=== PATIENT | male | born 1975 | race Caucasian/White ===

== ENCOUNTER → 2017-05-22 15:38 | Outpatient (CLI) | payer MEDICARE | END | disposition home or self-care (01) | LOC: D.RAD 15:38 | DX: S99.922A Unspecified injury of left foot, initial encounter (principal) ==

== ENCOUNTER → 2018-09-03 12:53 | Outpatient (CLI) | payer MEDICARE | END | disposition home or self-care (01) | LOC: D.LABREF 12:53 | DX: M16.11 Unilateral primary osteoarthritis, right hip (principal); Z11.8 Encounter for screening for other infectious and parasitic diseases ==

== ENCOUNTER → 2018-10-02 08:37 | Outpatient (CLI) | payer MEDICARE | END | disposition home or self-care (01) | LOC: D.LAB 08:37 | DX: M25.559 Pain in unspecified hip (principal) ==

== ENCOUNTER 2018-10-15 10:00 | Inpatient (IN) | payer MEDICARE ==
[~2018-10-15] VITALS: Ht 162.6 cm; Wt 54.5 kg
[~2018-10-15 10:00] MED LIST: AMITIZA24 MCG PO; BAYER CHEWABLE81 MG PO; CELEXA40 MG PO; FLUTICASONE PRO16 GM NASAL; PHENERGAN25 M1 PO; ROXICODONE15 MG PO; TRIUMEQ TABLET1 EACH PO; XANAX1 MG PO
[2018-10-15 12:15] LABS: BASOPHILS 0.1 % (0-2); HEMATOCRIT 46.3 % (42.0-54.0); HEMOGLOBIN 15.4 g/dL (13.5-17.5); IMMATURE GRANULOCYTES 1.1 % (0-5); LYMPHOCYTES 23.3 % (15-50); MCH 30.7 pg (26.0-34.0); MCHC 33.3 g/dL (31.0-37.0); MCV 92.2 fL (80.0-100.0); MEAN PLATELET VOLUME 10.2 fL (7.4-10.4); MONOCYTES 9.3 % (2-11); NEUTROPHILS 57.2 % (40-80); RBC 5.02 10x6/uL (4.20-6.10); RDW 13.2 % (11.5-14.5); WBC 9.3 10x3/uL (4.8-10.8)
[2018-10-15 12:18] LABS: PLATELET COUNT 248 10x3/uL (130-400)
[2018-10-15 12:22] LABS: CALC OSMOLALITY 275 mosm/kg (275-300); CALCIUM 8.7 mg/dL (8.5-10.1); CHLORIDE - SERUM 101 mmol/L (98-107); CREATININE - SERUM 0.7 mg/dL (0.6-1.3); GLUCOSE 90 mg/dL (74-106); POTASSIUM - SERUM 3.9 mmol/L (3.5-5.1); SODIUM 138 mmol/L (136-145); UREA NITROGEN 12 mg/dL (7-18); eGFR NON AFRICAN AMERICAN > 90 mL/min (90-120)
[2018-10-15 12:24] LABS: APTT 34.7 SECONDS (22.8-39.4); INR 0.98 (0.85-1.17); PROTIME 12.5 SECONDS (11.6-15.0)
[2018-10-15 12:49] LABS: APPEARANCE CLEAR (CLEAR); BILIRUBIN NEGATIVE (NEGATIVE); COLOR YELLOW (YELLOW); GLUCOSE NEGATIVE (NEGATIVE); KETONE NEGATIVE (NEGATIVE); NITRITE NEGATIVE (NEGATIVE); PROTEIN NEGATIVE (NEGATIVE); SPECIFIC GRAVITY 1.015 (1.005-1.020); UROBILINOGEN NORMAL (NORMAL)
[2018-10-20] VITALS (11 sets, daily range): BP systolic 89–112; BP diastolic 40–77; Ht 162.6 cm; Wt 54.5 kg
[2018-10-20 18:09] LABS: HEMATOCRIT 33.5 % (42.0-54.0); HEMOGLOBIN 11.4 g/dL (13.5-17.5); MCH 30.2 pg (26.0-34.0); MCV 88.9 fL (80.0-100.0); MEAN PLATELET VOLUME 10.1 fL (7.4-10.4); PLATELET COUNT 272 10x3/uL (130-400); RBC 3.77 10x6/uL (4.20-6.10); RDW 12.8 % (11.5-14.5); WBC 20.2 10x3/uL (4.8-10.8)
[2018-10-20 18:10] LABS: C-REACTIVE PROTEIN 0.3 mg/dL (0.0-0.9); CREATININE - SERUM 0.8 mg/dL (0.6-1.3)
[2018-10-20 18:35] LABS: LYMPHOCYTES 3 % (15-50); NEUTROPHILS 94 % (40-80)
[2018-10-20 18:36] LABS: PLATELET ESTIMATE NORMAL
[2018-10-20 18:59] LABS: ERYTHROCYTE SEDIMENTATION RATE 3 mm/hr (0-15)
[2018-10-21] VITALS (8 sets, daily range): BP systolic 91–110; BP diastolic 33–60
--- NOTE | 2018-10-21 01:17 | NUR ---
A/0X4. BREATHING EVEN AND UNLABORED. DENIES NEEDS AT THIS TIME. WILL CONTINUE POC.
[2018-10-21 05:19] LABS: HEMATOCRIT 27.9 % (42.0-54.0); HEMOGLOBIN 9.5 g/dL (13.5-17.5); MCH 30.4 pg (26.0-34.0); MCHC 34.1 g/dL (31.0-37.0); MCV 89.4 fL (80.0-100.0); MEAN PLATELET VOLUME 10.1 fL (7.4-10.4); RBC 3.12 10x6/uL (4.20-6.10); WBC 18.3 10x3/uL (4.8-10.8)
--- NOTE | 2018-10-21 14:07 | NUR ---
Rehab Prescreening Consult recieved and the chart has been reviewed. He is [facility] managed Medicare which requires a preauth for the ARU. A PT and an OT eval will be needed before submitting information for their review. Maribell Leon RN Clinical Liaison, Rehab
--- NOTE | 2018-10-21 16:43 | OP ---
PATIENT NAME: COREY WITT MEDICAL RECORD: [id number] :75 LOCATION:D.MS [id number] ADMISSION DATE:10/20/18 SURGEON: KASIA GUERRA MD DATE OF OPERATION: 10/20/2018 PREOPERATIVE DIAGNOSES: 1. 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 2. Trochanteric tip fracture of the right hip. POSTOPERATIVE DIAGNOSES: 1. 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 2. Trochanteric tip fracture of the right hip. PROCEDURES: 1. Revision total hip arthroplasty from bipolar to total hip arthroplasty. 2. ORIF of the greater trochanteric tip fracture. SURGEON: Kasia Guerra MD ANESTHESIA: General. DIRECTOR OF GRADUATE MEDICAL EDUCATION: Andrew Garcia APN INTRAOPERATIVE COMPLICATIONS: None. SUMMARY OF PATHOLOGIC FINDINGS: The patient had essentially chondromalacia of the acetabulum, which one would expect in this young person. The trochanteric tip fracture only required a rigid suture fixation and not metallic fixation. This was provided. INDICATIONS: Corey Witt is a 43-year-old male who had previously been treated with a bipolar hip arthroplasty for femoral neck fracture. His CD4 counts have been fine and he had been cleared for surgery from infectious disease. The patient's chief complaint was groin pain and secondarily he had pain on the lateral aspect of his trochanter that had not responded to other forms of treatment, thusly he presented for revision from bipolar to total hip arthroplasty. It is of note, at the time of surgery, the patient did not have any areas of metalosis. There were no untoward effects seen on the neck or neck shaft of the well-fixed stem that was not replaced. IMPLANTS USED: Trident II Tritanium acetabular shell size 50 cup. A -2.5 Biolox delta ceramic V40 head and then a polyethylene insert 0-degree 36 mm alpha code D. OPERATIVE SUMMARY IN DETAIL: After obtaining the appropriate preoperative orthopedic surgery consent as well as anesthetic consultation, evaluation and clearance, the patient was brought to the operating room and placed on the operating table in supine position. After general laryngeal mask airway was administered, the patient was placed in left lateral decubitus position. All pressure points were well padded to include down leg peroneal pad as well as axillary roll. The patient was held firmly to the operating table using the vacuum pack suction system. Right lower extremity and hip were then prepped and draped in routine sterile fashion. Anterolateral approach was chosen. Curvilinear incision was taken down to the level of the IT band, which was split in line with the fibers of the IT band to reveal the gluteus medius minimus OPERATIVE REPORT [id number] COREY WITT A attachment to the greater trochanter. These were reflected anteriorly and saved for later reapproximation. The hip capsule was split in a T-type fashion. The capsule was very large, robust and thick secondary to previous operative intervention. This was all dissected free. Again, there was no evidence of pseudotumor or metalosis seen in the hip capsule itself. The bipolar was then dislocated and the Castro taper was disassociated using a tamp. At this point, the acetabulum was visualized clearly. Circumferential labrectomy and further removal of hypertrophic capsule was followed by serial and sequential reaming to a size 49 for insertion of a size 50 Trident cup. The Trident cup was then put into place in the appropriate version using the version placement guide and had excellent capture without need for screw augmentation. Polyethylene was inserted into place at this point. Trial was undertaken and it was felt that the -5 was too loose and the standard was a little too tight. A -2.5 Biolox head was tamped on the Castro taper and reduced. Intraoperative radiographs showed excellent mormonism of leg length and good position and placement of the newly placed acetabulum. At this point, a FiberTape was utilized in a [id number]-zyxyu fashion to reapproximate the small greater tip trochanteric fracture. This was tied tightly. Please note that the radiograph was taken after internal fixation of the greater trochanter. Having completed this, the wound was copiously irrigated again. The hip capsule was closed with #2 Ethibond followed by #5 reapproximation of the gluteus medius and minimus back to the anterior aspect of the greater trochanter. IT band was then closed with #2 Ethibond. This was followed by #1 Vicryl, 2-0 Vicryl, and skin mandy. The final closure was done by Andrew Garcia APN. Skin mandy were utilized followed by placement of Aquacel Ag for sterile dressing. The patient was awakened, taken to the recovery room in stable condition. All final needle and sponge counts were correct. TRANSINT:[id number] Voice Confirmation ID: [id number] DOCUMENT ID: [id number] MARI VILLALOBOS, KASIA BARBOZA at 1643 CC: [id number] DICTATION DATE: 10/21/1846 ENVIRONMENTAL SERVICES LEAD: 10/21/18 1001 ADM IN [facility] [id number] [place] [address]
--- NOTE | 2018-10-21 19:59 | NUR ---
LYING IN BED. ALERT AND ORIENTED X4. IRRITABLE AND EXCITABLE. ASKING FOR NORCO BUT B/P IS LOW 91/47. PLASTICS FABRICATOR OR WELDER DILAUDID IN USE. PT IS USING IT. RATES PAIN "9". EXPLAINED THAT STAFF DIDNT FEEL COMFORTABLE GIVING HIM ANOTHER NARCOTIC WITH B/P BEING LOW IT IS. OFFERED TORADOL AND PT ACCEPTED. MEDICATED WITH TORADOL ORDERED. RESP NONLABORED. PEDAL PULSES STRONG BILAT. DRSG NOTED TO RT HIP IS C/D/I. 1/2 NS @ 30 ML/HR INFUSING IN LT FOREARM WITHOUT DIFF. USING URINAL. VERY TALKATIVE AND HYPERACTIVE. SR ELEVATED X2. CL IN REACH. NO ACUTE DISTRESS.
--- NOTE | 2018-10-22 01:07 | NUR ---
HAS BEEN RESTING WELL SO FAR. AWAKENED FOR V/S. STATES THE TORADOL HELPED ALOT AND IS ASKING FOR IT AGAIN. EXPLAINED IT ISNT DUE UNTIL 0200. HE VERBALIZED UNDERSTANDING.
[2018-10-22 01:10] VITALS: BP 102/62
--- NOTE | 2018-10-22 01:55 | NUR ---
MEDICATED WITH TORADOL FOR C/O PAIN IN RT HIP NOT RELIEVED BY DILAUDID AIRPLANE PATROL PILOT. CL IN REACH.
--- NOTE | 2018-10-22 05:07 | NUR ---
HAS RESTED WELL SINCE RECEIVING TORADOL. NO DISTRESS. CL IN REACH.
[2018-10-22 05:20] LABS: MCH 30.4 pg (26.0-34.0); MCHC 33.3 g/dL (31.0-37.0); MCV 91.1 fL (80.0-100.0); MEAN PLATELET VOLUME 10.3 fL (7.4-10.4); RBC 2.14 10x6/uL (4.20-6.10); WBC 6.9 10x3/uL (4.8-10.8)
[2018-10-22 05:22] LABS: HEMOGLOBIN 6.5 g/dL (13.5-17.5)
[2018-10-22 05:23] LABS: HEMATOCRIT 19.5 % (42.0-54.0)
[2018-10-22 05:36] VITALS: BP 112/72
--- NOTE | 2018-10-22 06:28 | NUR ---
NOTIFIED OF CRITICAL H/H. NEW ORDER NOTED TO D/C ELIQUIS AND TYPE AND CROSSMATCH 2 UNITS OF PRBCS AND TRANSFUSE 2 UNITS.
--- NOTE | 2018-10-22 07:15 | NUR ---
REC'D IN BED AWAKE AND ALERT. RESP EVEN AND UNLABORED WITH NO DISTRESS NOTED. CAN EXPRESS NEEDS AND WANTS. C/O PAIN RATING 10/10 ON PAIN SCALE. PT HAS ACCOUNTS RECEIVABLE ANALYST DILUADID PUMP IN USE AT THIS TIME. ASSESSMENT COMPLETED. C/L IN REACH AT BEDSIDE.
[2018-10-22 08:45] VITALS: BP 98/49
--- NOTE | 2018-10-22 09:30 | NUR ---
IT COORDINATOR OF DILAUDID WAS DISCONTINUED AT THIS TIME.
--- NOTE | 2018-10-22 11:32 | NUR ---
Rehab Note- Continue to follow at this time. Awaiting OT and PT Evals for PreAuth. Continue to follow at this time. Heaven Fu RN Clinical Liaison, [facility] Rehab
--- NOTE | 2018-10-22 12:21 | NUR ---
PT C/O PAIN WAS MEDICATED WITH DILUADID 4 MG PER ORDERS FOR C/O PAIN. C/L IN REACH AT BEDSIDE.
--- NOTE | 2018-10-22 15:11 | MORECARE ---
CASE MANAGEMENT DISCHARGE SUMMARY PATIENT: MAYELA DE SANTIAGO UNIT: [id number] ADM DATE: 10/20/18 AGE: 43 : 75 SEX: M ROOM/BED: D.2209 AUTHOR: BRIANNA COLLINS PHYSICIAN: REFERRING PHYSICIAN: KASIA GUERRA MD DATE OF SERVICE: 10/22/18 Discharge Plan Patient Name: MAYELA DE SANTIAGO [facility] 1975 Planned Disposition: Home Anticipated Discharge Date: Discharge Date: Expected LOS: Initial Reviewer: [email or web address] Initial Review Date: 10/20/2018 Generated: 10/22/18 4:11 pm DCPIA - Discharge Planning Initial Assessment Updated by [email or web address]: Martine Mercedes on 10/22/18 3:09 pm * Is the patient Alert and Oriented? Yes * How many steps to enter\exit or inside your home? * PCP CHE * Pharmacy [facility] * Preadmission Environment Home with Family * ADLs Independent * Equipment Rolling Walker * List name and contact numbers for known caregivers / representatives who currently or will assist patient after discharge: MICKY MCKINNEY ([phone]) * Verbal permission to speak to the caregivers and representatives has been obtained from the patient. N/A * Community resources currently utilized None * Additional services required to return to the preadmission environment? Yes * Can the patient safely return to the preadmission environment? Yes * Has this patient been hospitalized within the prior 30 days at any hospital? No Patient Name: MAYELA DE SANTIAGO Page [phone] at 1511 All edits/amendments must be made on the electronic document DICTATION DATE: 10/22/18 151 PRICING ANALYST: QUINTIN 10/22/18 151 RPT#: [id number] DC DATE: STATUS: ADM IN [facility] [address] [place] [address] END OF REPORT
--- NOTE | 2018-10-22 15:30 | MORECARE ---
CASE MANAGEMENT DISCHARGE SUMMARY PATIENT: MAYELA WITT UNIT: [id number] ADM DATE: 10/20/18 AGE: 43 : 75 SEX: M ROOM/BED: D.2209 AUTHOR: DENNISDOC PHYSICIAN: REFERRING PHYSICIAN: KASIA GUERRA MD DATE OF SERVICE: 10/22/18 Discharge Plan Patient Name: MAYELA WITT Facility: [facility]:[place] : 1975 Planned Disposition: Inpatient Rehab Anticipated Discharge Date: Discharge Date: Expected LOS: Initial Reviewer: [email or web address] Initial Review Date: 10/20/2018 Generated: 10/22/18 4:29 pm Comments DCP- Discharge Planning Updated by [id number]: Martine Mercedes on 10/22/18 2:[address] Patient Name: MAYELA WITT Admission Status: Elective Accout number: [id number] Admission Date: 10-20-2018 : 1975 Admission Diagnosis: Attending: KASIA GUERRA Current LOS: 2 Anticipated DC Date: Planned Disposition: Inpatient Rehab Primary Insurance: [facility] MEDICARE SOLUTIONS Discharge Planning Comments: CM met with patient to assess discharge planning needs. Patient stated that he would like to do inpatient rehab at [facility]. He lives with his parents and his mom will be the one to drive him home. When he is discharged he will need a BSC and a CPM. There are 3 steps to enter in his home. I explained to him that he will have to participate with PT in order to be accepted and insurance will have to approve him to go to inpatient rehab. CM will continue to follow and assist with dc planning Sanitary Engineer: Martine Mercedes DCPIA - Discharge Planning Initial Assessment Updated by [email or web address]: Martine Mercedes on 10/22/18 3:23 pm * Is the patient Alert and Oriented? Yes * How many steps to enter\exit or inside your home? * PCP Trae loza * [facility] * Preadmission Environment Home with Family * ADLs Independent * Equipment None * List name and contact numbers for known caregivers / representatives who currently or will assist patient after discharge: mehul Witt [phone] * Verbal permission to speak to the caregivers and representatives has been obtained from the patient. N/A * Community resources currently utilized None * Additional services required to return to the preadmission environment? Yes * Can the patient safely return to the preadmission environment? Yes * Has this patient been hospitalized within the prior 30 days at any hospital? No Last DP export: 10/22/18 2:11 pm Patient Name: MAYELA WITT Page [phone] at 1530 All edits/amendments must be made on the electronic document DICTATION DATE: 10/22/18 152 CASE REVIEWER: DM 10/22/18 1529 RPT#: [id number] DC DATE: STATUS: ADM IN [facility] [address] [place] [address] END OF REPORT
--- NOTE | 2018-10-22 17:22 | NUR ---
PT C/O PAIN RATING 10/10 ON PAIN SCALE WAS MEDICATED WITH DILUADID 4 MG PER ORDER BY MOUTH. FAMILY AT BEDSIDE. C/L IN REACH AT BEDSIDE.
--- NOTE | 2018-10-22 20:05 | NUR ---
LYING IN BED TALKING ON PHONE. VERY TALKATIVE AND EXCITABLE. POOR ATTN. RATES PAIN IN RT HIP 9. DRSG TO RT HIP IS C/D/I. PEDAL PULSES STRONG. SCD TO LLE. RESP EVEN AND NONLABORED. BBS CTA. SALINE LOCK NOTED TO LT FOREARM. SR ELEVATED X2. CL IN REACH.
--- NOTE | 2018-10-22 20:10 | NUR ---
DIRECTOR MOBILE MEDIA SOLUTIONS NOTE: PT RESTING IN BED. DILAUDID MICROFILM EQUIPMENT INSPECTOR INFUSING. EDUCATION GIVEN TO PT ON PT USE ONLY. NO S/S OF ACUTE DISTRESS. CL IN PLACE.
[2018-10-22 20:23] VITALS: BP 111/77
--- NOTE | 2018-10-22 21:25 | NUR ---
MEDICATED WITH DILAUDID FOR C/O PAIN IN RT HIP RATING 10. STILL TALKING AND LAUGHING WITH STAFF. CL IN REACH.
[2018-10-23 00:15] VITALS: BP 112/64
--- NOTE | 2018-10-23 07:30 | NUR ---
REC'D SITTING UP IN BED AWAKE AND ALERT. RESP EVEN AND UNLABORED WITH NO DISTRESS NOTED. CAN EXPRESS NEEDS AND WANTS. ASSESSMENT COMPLETED. C/L IN REACH AT BEDSIDE.
[2018-10-23 08:22] VITALS: BP 116/65
[2018-10-23 08:37] LABS: MCH 31.3 pg (26.0-34.0); MCHC 35.1 g/dL (31.0-37.0); MEAN PLATELET VOLUME 10.1 fL (7.4-10.4); RDW 15.4 % (11.5-14.5)
[2018-10-23 08:44] LABS: HEMATOCRIT 26.2 % (42.0-54.0); HEMOGLOBIN 9.2 g/dL (13.5-17.5); MCV 89.1 fL (80.0-100.0); RBC 2.94 10x6/uL (4.20-6.10); WBC 8.7 10x3/uL (4.8-10.8)
--- NOTE | 2018-10-23 10:00 | NUR ---
Rehab Note- Received fax requesting clinicals to be faxed for review to [facility] for possible inpatient acute rehab stay. Faxed at this time, will fax OT Eval when available. Will continue to follow at this time. THank you for this referral! Heaven Fu RN Clinical Liaison, [facility] Rehab
[2018-10-23 13:16] VITALS: BP 114/61
[2018-10-23 16:51] VITALS: BP 110/70
--- NOTE | 2018-10-23 18:57 | NUR ---
PATIENT GIVEN 4MG OF DILAUDID FOR REPORT OF HIP PAIN
--- NOTE | 2018-10-23 20:00 | NUR ---
ALERT RESTING IN BED RESP UNLABOARED DRESSING TO RIGHT HIP DRY AND INTACT IV SALINE LOCKED CALL LIGHT IN REACH
[2018-10-23 20:53] VITALS: BP 109/60
[2018-10-24 01:11] VITALS: BP 99/58
[2018-10-24 04:51] VITALS: BP 120/64
--- NOTE | 2018-10-24 07:30 | NUR ---
REC'D IN BED AWAKE AND ALERT. RESP EVEN AND UNLABORED WITH NO DISTRESS NOTED. CAN EXPRESS NEEDS AND WANTS. PT C/O PAIN RATING 9/10 ON PAIN SCALE INFORMED PT THAT IT WAS NOT TIME FOR PAIN MEDS AGAIN CAUSE HE WAS JUST MEDICATED A LITTLE AFTER 4 AM. ASSESSMENT COMPLETED. C/L IN REACH AT BEDSIDE.
[2018-10-24 09:35] VITALS: BP 110/67
--- NOTE | 2018-10-24 10:25 | NUR ---
C/O PAIN RATINTG 9/10 ON PAIN SCALE WAS MEDICATED WITH DILAUDID 4 MG PER ORDERS. C/L IN REACH AT BEDSIDE.
--- NOTE | 2018-10-24 11:45 | NUR ---
PT WAS OFFERED TORDAL AT THIS TIME BUT HE REFUSED THIS PAIN MEDICATION AND STATED I WILL WAIT UNTIL MY NEXT DOSE OF DILUADID IS DUE. C/L IN REACH AT BEDSIDE.
[2018-10-24 14:13] VITALS: BP 109/57
[2018-10-24 15:42] VITALS: BP 124/46
--- NOTE | 2018-10-24 16:06 | NUR ---
WAS MEDICATED WITH DILUADID 4 MG AT THIS TIME PER ORDERS. C/L IN REACH AT BEDSIDE.
--- NOTE | 2018-10-24 16:15 | NUR ---
PT DRESSING WAS REINFORCED D/T BLEEDING PT REFUSED TO LET THIS NURSE CHANGE DRESSING COMPLETELY STATING I WILL WAIT UNTIL TOMORROW AFTER I SHOWER.
--- NOTE | 2018-10-24 19:15 | NUR ---
RECEIVED CARE FROM DAY NURSE. LYING IN BED IN HIGH FOWLERS POSITION. REPORTS NO NEEDS AT THIS TIME. CALL LIGHT AT SIDE. DRESSING TO RIGHT HIP CDI. PER DAY NURSE DRESSING REINFORCED AND PT REFUSED TO HAVE DRESSING CHANGED.
--- NOTE | 2018-10-24 20:25 | NUR ---
IV IN LEFT FA LEAKING AT INSERTION SITE. DC'D WITH TIP INTACT. ATTEMPTED TO RESITE X2. REFUSED FURTHER ATTEMPTS.
[2018-10-24 21:28] VITALS: BP 100/52
[2018-10-25 00:29] VITALS: BP 105/50
--- NOTE | 2018-10-25 00:45 | NUR ---
RESTING SOUNDLY. CALL LIGHT AT SIDE. NO DISTRESS NOTED.
[2018-10-25 05:26] VITALS: BP 110/80
[2018-10-25 06:41] LABS: HEMATOCRIT 29.3 % (42.0-54.0); HEMOGLOBIN 9.6 g/dL (13.5-17.5); MCH 29.6 pg (26.0-34.0); MCHC 32.8 g/dL (31.0-37.0); MCV 90.4 fL (80.0-100.0); MEAN PLATELET VOLUME 10.2 fL (7.4-10.4); RBC 3.24 10x6/uL (4.20-6.10)
--- NOTE | 2018-10-25 08:10 | NUR ---
PT AAOX4 RESP EVEN AND NONLABORED, REQUESTING PAIN MEDS WILL CHECK EMAR AND ADMINSITER PER PROTOCOL, CL IN REACH, NO SIGNS OF DISTRESS NOTED
[2018-10-25 09:09] VITALS: BP 105/59
[2018-10-25 13:15] VITALS: BP 102/84
--- NOTE | 2018-10-25 17:44 | NUR ---
HORSE SHOER NOTES - POD 5 OF HIP. UP WITH PT. TAKING PAIN MEDICATION PO. REPORTING PAIN OF 8-10 ALL DAY
[2018-10-25 20:53] VITALS: BP 128/46
[2018-10-26 00:50] VITALS: BP 120/85
[2018-10-26 05:02] VITALS: BP 113/65
--- NOTE | 2018-10-26 07:50 | NUR ---
PT RESTING EYES CLOSED, NO SIGNS OF DISTRESS NOTED, CL IN REACH WILL CONTINUE TO MONITOR
[2018-10-26 08:00] VITALS: BP 124/65
[2018-10-26] MEDS ORDERED: DILAUDID4 MG PO (09:50)
[2018-10-26] MEDS ORDERED: VISTARIL50 MG PO (09:50)
[2018-10-26] MEDS ORDERED: BAYER CHEWABLE81 MG PO (09:50)
--- NOTE | 2018-10-26 15:42 | NUR ---
PT DC AT THIS TIME DC INSTRUCTIONS PT VERABLIZES UNDERSTANDING LEFT VIA WHEELCHAIR VIA HOSPITAL STAFF IN STABLE CONDITION PRESCIPTIONS GIVEN TO PT
--- NOTE | 2018-10-26 17:32 | MORECARE ---
CASE MANAGEMENT DISCHARGE SUMMARY PATIENT: MAYELA DE SANTIAGO UNIT: [id number] ADM DATE: 10/20/18 AGE: 43 : 75 SEX: M ROOM/BED: D.2209 AUTHOR: DENNIS,DOC PHYSICIAN: REFERRING PHYSICIAN: KASIA GUERRA MD DATE OF SERVICE: 10/26/18 Discharge Plan Patient Name: MAYELA DE SANTIAGO Facility: [facility]:[place] : 1975 Planned Disposition: Inpatient Rehab Anticipated Discharge Date: 10/26/18 Discharge Date: 10/26/2018 Expected LOS: 6 Initial Reviewer: [email or web address] Initial Review Date: 10/20/2018 Generated: 10/26/18 6:31 pm Comments DCP- Discharge Planning Updated by [email or web address]: Martine Mercedes on 10/22/18 2:[address] Patient Name: MAYELA DE SANTIAGO Admission Status: Elective Accout number: [id number] Admission Date: 10-20-2018 : 1975 Admission Diagnosis: Attending: KASIA GUERRA Current LOS: 2 Anticipated DC Date: Planned Disposition: Inpatient Rehab Primary Insurance: [facility] MEDICARE SOLUTIONS Discharge Planning Comments: CM met with patient to assess discharge planning needs. Patient stated that he would like to do inpatient rehab at [facility]. He lives with his parents and his mom will be the one to drive him home. When he is discharged he will need a BSC and a CPM. There are 3 steps to enter in his home. I explained to him that he will have to participate with PT in order to be accepted and insurance will have to approve him to go to inpatient rehab. CM will continue to follow and assist with dc planning Gas Meter Repairer: Martine Mercedes DCPIA - Discharge Planning Initial Assessment Updated by [email or web address]: Martine Mercedes on 10/22/18 3:23 pm * Is the patient Alert and Oriented? Yes * How many steps to enter\exit or inside your home? * PCP Trae loza * Pharmacy [facility] * Preadmission Environment Home with Family * ADLs Independent * Equipment None * List name and contact numbers for known caregivers / representatives who currently or will assist patient after discharge: mehul Miryamtfr [phone] * Verbal permission to speak to the caregivers and representatives has been obtained from the patient. N/A * Community resources currently utilized None * Additional services required to return to the preadmission environment? Yes * Can the patient safely return to the preadmission environment? Yes * Has this patient been hospitalized within the prior 30 days at any hospital? No Last DP export: 10/22/18 2:30 pm Patient Name: MAYELA DE SANTIAGO Page [phone] at 1732 All edits/amendments must be made on the electronic document DICTATION DATE: 10/26/181730 METAL FENCE ERECTOR: QUINTIN 10/26/181730 RPT#: [id number] DC DATE:10/26/18 STATUS: DIS IN [facility] [address] [place] [address] END OF REPORT
--- NOTE | 2018-10-26 17:39 | MORECARE ---
CASE MANAGEMENT DISCHARGE SUMMARY PATIENT: MAYELA DE SANTIAGO UNIT: [id number] ADM DATE: 10/20/18 AGE: 43 : 75 SEX: M ROOM/BED: D.2209 AUTHOR: DENNIS,DOC PHYSICIAN: REFERRING PHYSICIAN: KASIA GUERRA MD DATE OF SERVICE: 10/26/18 Discharge Plan Patient Name: MAYELA DE SANTIAGO Facility: [facility]:[place] : 1975 Planned Disposition: Inpatient Rehab Anticipated Discharge Date: 10/26/18 Discharge Date: 10/26/2018 Expected LOS: 6 Initial Reviewer: [email or web address] Initial Review Date: 10/20/2018 Generated: 10/26/18 6:39 pm Comments DCP- Discharge Planning Updated by [email or web address]: Zora Jiang on 10/26/18 4:[address] LATE ENTRY- 1030 PATIENT FOR DISCHARGE TO HOME WITH HOME HEALTH. HIS MOTHER AND FATHER WERE AT THE BEDSIDE HE GAVE PERMISSION FOR CM TO SPEAK WITH HIM AND HIS PARENTS. CM ADVISED MD HAD ORDERED HOME HEALTH. PATIENT CHOICE FORM OBTAINED. HE SELECTED [facility]. TC TO [facility]. CM SPOKE W/ WOOD. FAXED REFERRAL. [facility] WILL CONTACT PATIENT REGARDING VISIT. H/H FOR LONGTERM AND PHYSICAL THERAPY. CM NOTE STATED PATIENT WOULD NEED CPM AMD BSC. CM SPOKE WITH DR FLORES ABOUT CPM. DR FLORES STATED A CPM WAS NOT INDICATED FOR THIS PATIENT. TC TO [facility] REGARDING BEDSIDE COMMODE. FAXED MD ORDER, FACE SHEET AND OPERATIVE NOTE. AWAITED DELIVERY. SPOKE WITH [facility]. WILL DELIVER TO THE PATIENT BEDSIDE. PATIENT DISCHARGED TO HOME AT 1545. THEY WERE TIRED OF WAITING FOR THE COMMODE. JOHANNAE ARRIVED 10 MINUTES AFTER PATIENT DISCHARGE. [facility] TO SEE IF HE STILL WANTS THE COMMODE. DCP- Discharge Planning Updated by [email or web address]: Martine Mercedes on 10/22/18 2:[address] Patient Name: MAYELA DE SANTIAGO Admission Status: Elective Accout number: [id number] Admission Date: 10-20-2018 : 1975 Admission Diagnosis: Attending: KASIA GUERRA Current LOS: 2 Anticipated DC Date: Planned Disposition: Inpatient Rehab Primary Insurance: [facility] MEDICARE SOLUTIONS Discharge Planning Comments: CM met with patient to assess discharge planning needs. Patient stated that he would like to do inpatient rehab at [facility] [place]. He lives with his parents and his mom will be the one to drive him home. When he is discharged he will need a BSC and a CPM. There are 3 steps to enter in his home. I explained to him that he will have to participate with PT in order to be accepted and insurance will have to approve him to go to inpatient rehab. CM will continue to follow and assist with dc planning Train System Operator: Martine Mercedes DCPIA - Discharge Planning Initial Assessment Updated by [email or web address]: Martine Mercedes on 10/22/18 3:23 pm * Is the patient Alert and Oriented? Yes * How many steps to enter\exit or inside your home? * PCP Trae loza * Pharmacy [facility] * Preadmission Environment Home with Family * ADLs Independent * Equipment None * List name and contact numbers for known caregivers / representatives who currently or will assist patient after discharge: mehul Miryam [phone] * Verbal permission to speak to the caregivers and representatives has been obtained from the patient. N/A * Community resources currently utilized None * Additional services required to return to the preadmission environment? Yes * Can the patient safely return to the preadmission environment? Yes * Has this patient been hospitalized within the prior 30 days at any hospital? No Last DP export: 10/26/18 4:32 p Patient Name: MAYELA DE SANTIAGO Page [phone] at 173 All edits/amendments must be made on the electronic document DICTATION DATE: 10/26/181738 ENERGY MANAGEMENT SPECIALIST: QUINTIN 10/26/181738 RPT#: [id number] DC DATE:10/26/18 STATUS: DIS IN [facility] [address] [place] [address] END OF REPORT
--- NOTE | 2018-10-27 09:11 | MORECARE ---
CASE MANAGEMENT DISCHARGE SUMMARY PATIENT: MAYELA DE SANTIAGO UNIT: [id number] ADM DATE: 10/20/18 AGE: 43 : 75 SEX: M ROOM/BED: D.2209 AUTHOR: DENNIS,DOC PHYSICIAN: REFERRING PHYSICIAN: KASIA GUERRA MD DATE OF SERVICE: 10/27/18 Discharge Plan Patient Name: MAYELA DE SANTIAGO Facility: [facility]:[place] : 1975 Planned Disposition: Inpatient Rehab Anticipated Discharge Date: 10/26/18 Discharge Date: 10/26/2018 Expected LOS: 6 Initial Reviewer: [email or web address] Initial Review Date: 10/20/2018 Generated: 10/27/18 10:11 am Comments DCP- Discharge Planning Updated by [email or web address]: Zora Jiang on 10/26/18 4:[address] LATE ENTRY- 1030 PATIENT FOR DISCHARGE TO HOME WITH HOME HEALTH. HIS MOTHER AND FATHER WERE AT THE BEDSIDE HE GAVE PERMISSION FOR CM TO SPEAK WITH HIM AND HIS PARENTS. CM ADVISED MD HAD ORDERED HOME HEALTH. PATIENT CHOICE FORM OBTAINED. HE SELECTED [facility]. TC TO [facility]. CM SPOKE W/ WOOD. FAXED REFERRAL. [facility] WILL CONTACT PATIENT REGARDING VISIT. H/H FOR CORRECTION AND PHYSICAL THERAPY. CM NOTE STATED PATIENT WOULD NEED CPM AMD BSC. CM SPOKE WITH DR FLORES ABOUT CPM. DR FLORES STATED A CPM WAS NOT INDICATED FOR THIS PATIENT. TC TO [facility] REGARDING BEDSIDE COMMODE. FAXED MD ORDER, FACE SHEET AND OPERATIVE NOTE. AWAITED DELIVERY. SPOKE WITH [facility]. WILL DELIVER TO THE PATIENT BEDSIDE. PATIENT DISCHARGED TO HOME AT 1545. THEY WERE TIRED OF WAITING FOR THE COMMODE. JOHANNAE ARRIVED 10 MINUTES AFTER PATIENT DISCHARGE. [facility] PATIENT TO SEE IF HE STILL WANTS THE COMMODE. DCP- Discharge Planning Updated by [id number]: Martine Mercedes on 10/22/18 2:[address] Patient Name: MAYELA DE SANTIAGO Admission Status: Elective Accout number: [id number] Admission Date: 10-20-2018 : 1975 Admission Diagnosis: Attending: KASIA GUERRA Current LOS: 2 Anticipated DC Date: Planned Disposition: Inpatient Rehab Primary Insurance: [facility] [employer] Discharge Planning Comments: CM met with patient to assess discharge planning needs. Patient stated that he would like to do inpatient rehab at [facility]. He lives with his parents and his mom will be the one to drive him home. When he is discharged he will need a BSC and a CPM. There are 3 steps to enter in his home. I explained to him that he will have to participate with PT in order to be accepted and insurance will have to approve him to go to inpatient rehab. CM will continue to follow and assist with dc planning Fabric Worker Leader: Martine Mercedes DCPIA - Discharge Planning Initial Assessment Updated by [id number]: Martine Mercedes on 10/22/18 3:23 pm * Is the patient Alert and Oriented? Yes * How many steps to enter\exit or inside your home? * PCP Trae loza * Pharmacy [facility] * Preadmission Environment Home with Family * ADLs Independent * Equipment None * List name and contact numbers for known caregivers / representatives who currently or will assist patient after discharge: mehul Miryam [phone] * Verbal permission to speak to the caregivers and representatives has been obtained from the patient. N/A * Community resources currently utilized None * Additional services required to return to the preadmission environment? Yes * Can the patient safely return to the preadmission environment? Yes * Has this patient been hospitalized within the prior 30 days at any hospital? No Last DP export: 10/26/18 4:39 p Patient Name: MAYELA DE SANTIAGO Page [id number] at 0911 All edits/amendments must be made on the electronic document DICTATION DATE: 10/27/18909 SERVICE TEAM LEADER: QUINTIN 10/27/18909 RPT#: [id number] DC DATE:10/26/18 STATUS: DIS IN [facility] [address] [place] [address] END OF REPORT
== END 2018-10-26 15:36 | disposition home health service (06) | DRG 466 ==
LOC: D.SDCHOLD 10-20 10:00 → D.MS 10-20 10:35 → D.SDCHOLD 10-20 11:15 → D.MS 10-20 15:08
PROVIDERS: Student in an Organized Health Care Education/Training Program; ADMIT Orthopaedic Surgery
PROC: 0SP90JZ Removal of Synthetic Substitute from Right Hip Joint, Open Approach (ICD-10-PCS; 2018-10-20)
PROC: 0QS604Z Reposition Right Upper Femur with Internal Fixation Device, Open Approach (ICD-10-PCS; 2018-10-20)
PROC: 0SR90JZ Replacement of Right Hip Joint with Synthetic Substitute, Open Approach (ICD-10-PCS; principal; 2018-10-20 12:30)
DX: T84.84XA Pain due to internal orthopedic prosthetic devices, implants and grafts, initial encounter (principal); S72.101A Unspecified trochanteric fracture of right femur, initial encounter for closed fracture; D62 Acute posthemorrhagic anemia; K75.9 Inflammatory liver disease, unspecified

== ENCOUNTER → 2019-10-05 12:50 | Outpatient (CLI) | payer MEDICARE ==
[2018-10-20 20:33] VITALS: BMI 20.6
[~2019-10-05 12:50] MED LIST changes: +DILAUDID4 MG PO; +VISTARIL50 MG PO
== END | disposition home or self-care (01) ==
LOC: D.MRI 12:50
PROVIDERS: ATTEND Orthopaedic Surgery
DX: M54.16 Radiculopathy, lumbar region (principal)

== ENCOUNTER 2021-04-04 21:07 | Emergency (ER) | payer MEDICARE ==
[~2021-04-04] VITALS: Ht 162.6 cm; Wt 56.8 kg
[2021-04-04 21:17] VITALS: Ht 162.6 cm; Wt 56.8 kg
[2021-04-04 21:47] LABS: BASOPHILS 0.1 % (0-2); EOSINOPHILS 1.8 % (0-7); HEMATOCRIT 39.6 % (42.0-54.0); HEMOGLOBIN 13.1 g/dL (13.5-17.5); LYMPHOCYTES 8.6 % (15-50); MCH 28.5 pg (26.0-34.0); MCV 86.3 fL (80.0-100.0); MEAN PLATELET VOLUME 7.7 fL (7.4-10.4); MONOCYTES 7.2 % (2-11); NEUTROPHILS 82.3 % (40-80); RBC 4.59 10x6/uL (4.20-6.10); RDW 13.7 % (11.5-14.5); WBC 12.1 10x3/uL (4.8-10.8)
[2021-04-04 21:50] LABS: CALC OSMOLALITY 270 mosm/kg (275-300); CALCIUM 7.9 mg/dL (8.5-10.1); CARBON DIOXIDE 28.7 mmol/L (21.0-32.0); CHLORIDE - SERUM 101 mmol/L (98-107); CREATININE - SERUM 0.8 mg/dL (0.6-1.3); GLUCOSE 105 mg/dL (74-106); POTASSIUM - SERUM 3.5 mmol/L (3.5-5.1); SODIUM 136 mmol/L (136-145); UREA NITROGEN 9 mg/dL (7-18); eGFR NON AFRICAN AMERICAN > 90 mL/min (90-120)
[2021-04-04 21:52] LABS: BILIRUBIN NEGATIVE (NEGATIVE); KETONE NEGATIVE mg/dL (< 1+); NITRITE NEGATIVE (NEGATIVE); UROBILINOGEN NORMAL mg/dL (< 2)
[2021-04-04 21:58] LABS: PLATELET COUNT 278 10x3/uL (130-400)
[2021-04-04 22:05] LABS: ALBUMIN 3.2 g/dL (3.4-5.0); ALKALINE PHOSPHATASE 129 U/L (30-120); ALT (SGPT) 34 U/L (10-68); BILIRUBIN - TOTAL 0.39 mg/dL (0.2-1.3); CREATINE KINASE 104 UL (21-232); LIPASE 68 U/L (73-393); MAGNESIUM - SERUM 1.9 mg/dL (1.8-2.4); PROTEIN - SERUM 7.4 g/dL (6.4-8.2)
[2021-04-04 22:10] LABS: UDS - AMPHET POSITIVE QUAL (NEGATIVE); UDS - BARB NEGATIVE QUAL (NEGATIVE); UDS - BENZO POSITIVE QUAL (NEGATIVE); UDS - COCAINE NEGATIVE QUAL (NEGATIVE); UDS - OPIATE NEGATIVE QUAL (NEGATIVE); UDS - PCP NEGATIVE QUAL (NEGATIVE); UDS - THC NEGATIVE QUAL (NEGATIVE)
[2021-04-05 00:36] VITALS: BP 123/85
== END 2021-04-05 00:59 | disposition home or self-care (01) ==
LOC: D.ER 21:07
PROVIDERS: Family Medicine
DX: T40.2X1A Poisoning by other opioids, accidental (unintentional), initial encounter (principal); K21.9 Gastro-esophageal reflux disease without esophagitis